=== PATIENT | female | born 1990 | race Caucasian/White ===

== ENCOUNTER 2022-07-16 09:09 | Emergency (ER) | payer SELFPAY ==
[2022-07-16] MEDS ORDERED: Metoclopramide 10 MG/2 ML SDV IVPUSH ONE (09:28)
[2022-07-16] MEDS ORDERED: diphenhydrAMINE 50 MG/ML SDV IVPUSH ONE (09:28)
[2022-07-16] MEDS ORDERED: LORazepam 2 MG/ML SDV IVPUSH ONE (09:28)
[2022-07-16] MEDS ORDERED: Dextrose 5%-Lactated Ringers 1,000 ML IV SCH (09:30)
[2022-07-16] MEDS ORDERED: cloNIDine 0.1 MG Tab PO ONE (09:45)
[2022-07-16] MEDS ORDERED: LORazepam 2 MG/ML SDV IM ONE (10:14)
[2022-07-16] MEDS ORDERED: Metoclopramide 10 MG/2 ML SDV IM ONE (10:15)
[2022-07-16] MEDS ORDERED: Lidocaine 1% 2 ML ONE (10:59)
[2022-07-16] MEDS ORDERED: cloNIDine 0.1 MG Tab ONE (11:09)
[2022-07-16] MEDS ORDERED: Lidocaine 1% PF 2 ML SDV INJECT ONE (11:17)
== END 2022-07-16 12:00 | disposition home or self-care (01) ==
LOC: JD.ED 09:09
DX: F11.23 Opioid dependence with withdrawal (principal)
CPT/HCPCS: 96372; 99284; A9270; J2060; J2765